=== PATIENT | male | born 1960 | race Caucasian/White ===

== ENCOUNTER 2017-04-04 11:35 | Day surgery (SDC) | payer OTHER ==
[2017-03-29 16:20] LABS: BASOPHILS 0.2 %; BASOPHILS ABSOLUTE 0.02 10/3/uL (0.0-0.16); EOSINOPHILS 5.4 %; EOSINOPHILS ABSOLUTE 0.45 10/3/uL (0.0-0.53); HEMOGLOBIN 13.5 g/dL (13.6-17.8); IMMATURE GRANULOCYTES 0.1 %; IMMATURE GRANULOCYTES ABSOLUTE 0.01 10/3/uL (0.0-0.11); LYMPHOCYTES 25.4 %; MEAN CORPUS HGB CONC 32.2 g/dL (32.0-36.0); MEAN PLATELET VOLUME 11.5 fL (9.2-13.0); MONOCYTES 5.8 %; MONOCYTES ABSOLUTE 0.48 10/3/uL (0.21-1.20); NEUTROPHILS 63.1 %; NEUTROPHILS ABSOLUTE 5.21 10/3/uL (2.02-8.40); PLATELET COUNT 262 10/3/uL (150-400); RBC DISTRIBUTION WIDTH 13.9 % (12.0-16.0); WHITE BLOOD CELLS 8.3 10/3/uL (4.5-10.5)
[2017-03-29 16:21] LABS: HEMATOCRIT 41.9 % (40.0-51.0); MANUAL DIFF NO %; MEAN CORPUSCULAR HEMOGLOB 28.1 pg (26.0-34.0); MEAN CORPUSCULAR VOLUME 87.3 fL (80-100)
[2017-03-29 16:36] LABS: BUN (BLOOD UREA NITROGEN) 16 MG/DL (6-23); CHLORIDE, SERUM 104 MMOL/L (96-112); CO2 (CARBON DIOXIDE) 29 MMOL/L (24-34); CREATININE 0.82 MG/DL (0.70-1.30); GFR AFRICAN AMERICAN 114 ML/MIN (>=60); GFR NON AFRICAN AMERICAN 98 ML/MIN (>=60); GLUCOSE, SERUM 91 MG/DL (60-99); POTASSIUM, SERUM 4.1 MMOL/L (3.5-5.3); SODIUM, SERUM 141 MMOL/L (135-148)
[2017-03-29 16:37] LABS: CALCIUM, SERUM 9.2 MG/DL (8.5-10.4)
--- NOTE | ~2017-04-04 | OP ---
Record Of Operation [facility] [address] [facility] [address] NAME: TROY JEAN : 58 STATUS : REG [facility]#: [id number] AGE: 56 ADM/REG DATE : 04/04/17 MR#: [id number] REPORT SERV DATE: 04/04/17 DICTATED BY: BENJAMIN STACK III DATE: 04/04/17 REPORT STATUS : Draft TRANSCRIBED BY: MODL DATE: 04/04/17 DATE OF PROCEDURE: 04/04/2017 PROCEDURE: Cystoscopy and multiple bladder biopsies. Also, left retrograde was done during the procedure. 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 PROCEDURE IN DETAIL: Following induction of adequate general anesthesia, the patient was placed in dorsal lithotomy position, prepped and draped in sterile fashion. The urethra was normal. Prostate was enlarged with a small median lobe. The bladder was entered and inspected with a both 30 degree and 70 degree lenses. The left orifice was intact as was the right. There was some mild erythema in the tumor bed but no papillary lesions. The left retrograde was normal with no filling defects. 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 There may actually have been a mild UPJ obstruction from a high insertion. The biopsy forceps were then used to take 9 to 10 biopsies of the tumor bed and some areas around the former tumor bed. These were sent as bladder biopsies post BCG immunotherapy. The biopsy sites were fulgurated until hemostasis was achieved, and a 20-[place] Zhang catheter was placed. He tolerated the procedure well. ESTIMATED BLOOD LOSS: Nil. OB/MODL Benjamin Stack III, M.D. / [id number] CC: Nallely Nascimento III, M.D.
--- NOTE | ~2017-04-04 | OP ---
Record Of Operation [facility] [address] [place]. [address] NAME: TROY JEAN : 58 STATUS : REG [facility]#: [id number] AGE: 56 ADM/REG DATE : 04/04/17 MR#: [id number] REPORT SERV DATE: 04/04/17 DICTATED BY: BENJAMIN STACK III DATE: 04/04/17 REPORT STATUS : Draft TRANSCRIBED BY: MODL DATE: 04/04/17 DATE OF PROCEDURE: 04/04/2017 DICTATION ENDS HERE OB/MODL Benjamin Stack III, M.D. / [id number] CC: Nallely Nascimento III, M.D.
[~2017-04-04 11:35] MED LIST: ACIPHEX PO; ALBUTEROL5 INH; ALKA-SELTZER P1 EAC3 PO; ALLEGRA180 PO; AMOXIL500 MG PO; ASAB PO; ASMANEX INH; FLONASE NAS; HALF81 PO; MUCINEX600 MG PO; MULTIVIT/MIN PO; NIZORSHAM TOP; NYQUIL PO; OTC VITAMIN C PO; P10; PRAVAC PO; PRIN10 PO; SIMCOR1 TAB PO; VENTOLIN HFA INH; ZESTRIL10 MG PO
== END 2017-04-04 17:11 | disposition home or self-care (01) ==
LOC: SDC 11:35
PROVIDERS: Urology
PROC: 0TBB8ZX Excision of Bladder, Via Natural or Artificial Opening Endoscopic, Diagnostic (ICD-10-PCS; principal; 2017-04-04 13:15)
DX: C67.9 Malignant neoplasm of bladder, unspecified (principal); J45.909 Unspecified asthma, uncomplicated; I10 Essential (primary) hypertension; K21.9 Gastro-esophageal reflux disease without esophagitis; G47.33 Obstructive sleep apnea (adult) (pediatric); E78.00 Pure hypercholesterolemia, unspecified; Z99.81 Dependence on supplemental oxygen
CPT/HCPCS: 74420; 80048; 85025; 88305; 93005; J2250; J2370; J2405; J2710; J3010; Q9967